=== PATIENT | male | born 1945 | race Caucasian/White ===

== ENCOUNTER 2020-10-16 10:31 | Emergency (ER) | payer MEDICARE ==
[2020-10-16 11:04] LABS: #Basophils 0.1 thou/uL (0.0-0.2); #Eosinphils 0.1 thou/uL (0.0-0.7); #Lymphocytes 0.9 thou/uL (1.20-3.40); #Monocytes 0.4 thou/uL (0.11-0.59); #Neutrophils 4.1 thou/uL (1.40-6.50); %Basophils 1.5 % (0.0-1.0); %Eosinophils 1.8 % (0.0-10.0); %Lymphocytes 15.4 % (21.0-51.0); %Monocytes 7.1 % (0.0-10.0); %Neutrophils 74.3 % (42.0-75.0); Hemoglobin 12.4 g/dL (14.0-18.0); Mean Corpuscular Hemoglobin 27.9 pg (27.0-31.0); Mean Corpuscular Volume 90.1 fL (78.0-98.0); Mean Platelet Volume 5.6 fL (7.4-10.4); Platelet Count 229 thou/uL (130-400); RBC Distribution Width 14.7 % (11.5-14.5); Red Blood Cell (RBC) Count 4.45 mill/uL (4.70-6.10); White Blood Cell (WBC) Count 5.5 thou/uL (4.8-10.8)
[2020-10-16 11:12] LABS: INR-International Normal Ratio 1.1; PTT 36.5 sec (22.9-36.1)
[2020-10-16 11:23] LABS: ALT (SGPT) 14 U/L (8-55); AST (SGOT) 17 U/L (5-34); Albumin 3.9 g/dL (3.4-4.8); Alkaline Phosphatase 84 U/L (40-110); Anion Gap 15 mmol/L (10-20); BUN (Urea Nitrogen) 26 mg/dL (8.4-25.7); Bilirubin, Total 0.5 mg/dL (0.2-1.2); Calc. Creatinine Clearance 0 mL/min (70-130); Calcium 9.1 mg/dL (7.8-10.44); Carbon Dioxide 27 mmol/L (23-31); Chloride 101 mmol/L (98-107); Globulin 2.6 g/dL (2.4-3.5); Glucose 95 mg/dL (83-110); Potassium 5.1 mmol/L (3.5-5.1); Protein, Total 6.5 g/dL (5.8-8.1); Sodium 138 mmol/L (136-145)
--- NOTE | 2020-10-16 11:49 | CT ---
Exam: Head CT without contrast HISTORY: Left-sided weakness which has resolved. Transient ischemic attack COMPARISON: none FINDINGS: Hemorrhage: No intraparenchymal hemorrhage or extra-axial hematoma. Brain parenchyma: Cortical day-white matter differentiation is preserved. No mass effect or midline shift. Basilar cisterns are patent. Ventricular system: Ventricles and sulci are patent and symmetric. Calvarium: Intact. Sinuses and mastoid air cells: Adequate aeration. IMPRESSION: No acute intracranial process.
--- NOTE | 2020-10-16 12:30 | CT ---
Exam: CTA neck with contrast CTA head with contrast HISTORY: TIA while driving down the road with left-sided weakness and visual disturbance; history of brain cancer status post gamma knife surgery COMPARISON: CT brain 10/16/2020 TECHNIQUE: 1. Multiple contiguous axial images were obtained and a CTA of the neck with contrast. 3-D sagittal a nd coronal MIP reformats were performed. 2. Multiple contiguous axial images were obtained and a CTA of the head with contrast. 3-D sagittal a nd coronal MIP reformats were performed. FINDINGS: CTA NECK: Aortic arch: Normal origin of the carotid arteries from the arch. No significant atherosclerotic dise ase of the subclavian arteries. Right common carotid artery: No significant atherosclerotic disease or narrowing Left common carotid artery: No significant atherosclerotic disease or narrowing Right internal carotid artery: Moderate proximal calcified and noncalcified plaque with approximately 60% stenosis per NASCET criteria Right external carotid artery: No significant atherosclerotic disease or narrowing Left internal carotid artery: There is a small amount of calcified or noncalcified plaque with less t russell 20% stenosis per NASCET criteria Left external carotid artery: No significant atherosclerotic disease or narrowing Right cervical vertebral artery: No significant atherosclerotic disease or narrowing Left cervical vertebral artery: No significant atherosclerotic disease or narrowing There are prominent lymph nodes in the right infraclavicular and supraclavicular region.. Innumerable nodules are seen in the lung apices. A Mediport is partially visualized. Degenerative changes in the spine. CTA HEAD: Right intracranial internal carotid artery: Patent without narrowing or occlusion Right anterior cerebral artery: Patent without narrowing or occlusion Right middle cerebral artery: There is an 8 mm aneurysm emanating from the M1 segment of the middle c erebral artery. No evidence of occlusion. Left intracranial internal carotid artery: Patent without narrowing or occlusion Left anterior cerebral artery: Patent without narrowing or occlusion Left middle cerebral artery: Patent without narrowing or occlusion The right vertebral artery is dominant. Right vertebral artery: Patent without narrowing or occlusion Left vertebral artery: Patent without narrowing or occlusion Basilar artery: Patent without narrowing or occlusion The posterior cerebral arteries and cerebellar arteries are patent without narrowing or occlusion. No aneurysmal dilatation is seen in the posterior circulation. IMPRESSION: 1. Moderate stenosis of approximately 60% in the proximal right internal carotid artery 2. 8mm right MCA aneurysm 3. Innumerable masses in the lung apices and right supraclavicular and infraclavicular lymphadenopath y is concerning for metastatic disease.
[2020-10-16] MEDS ORDERED: Iopamidol 370 76% 125 ML VIAL FS ONE (14:01)
== END 2020-10-16 14:15 | disposition short-term general hospital (02) ==
LOC: MADERS 10:31
DX: G80.8 Other cerebral palsy (principal); G45.9 Transient cerebral ischemic attack, unspecified; R29.700 NIHSS score 0; Z85.118 Personal history of other malignant neoplasm of bronchus and lung; Z79.01 Long term (current) use of anticoagulants; Z79.899 Other long term (current) drug therapy
CPT/HCPCS: 36415; 70450; 70496; 70498; 80053; 84484; 85025; 85610; 85730; 93005; 94760; Q9967